=== PATIENT | female | born 1955 | race Caucasian/White ===

== ENCOUNTER 2021-02-08 22:27 | Emergency (ER) | payer SELFPAY ==
[2021-02-09 00:18] LABS: HEMOGLOBIN 14.3 gm/dl (12.3-15.3); RED BLOOD COUNT 4.38 M/UL (4.00-5.10)
[2021-02-09 00:32] LABS: BUN/CREATININE RATIO 17 (0-10)
[2021-02-09] MEDS ORDERED: ZOFRAN ODT 4 MG4 MG SL (01:20)
[2021-02-09] MEDS ORDERED: BENTYL 20MG TAB20 MG PO (01:20)
== END 2021-02-09 01:37 | disposition home or self-care (01) ==
LOC: ER1 22:27
PROVIDERS: Physician Assistant
DX: U07.1 COVID-19 (principal); E78.5 Hyperlipidemia, unspecified; Z90.710 Acquired absence of both cervix and uterus
CPT/HCPCS: 71045; 80053; 82550; 82553; 83605; 83690; 83874; 84484; 85025; 93005; 99284; Q9967